=== PATIENT | male | born 1980 | race Caucasian/White ===

== ENCOUNTER 2017-02-23 08:00 | Outpatient (RCR) | payer MEDICAID ==
[2016-04-18 10:18] VITALS: Ht 160 cm; Wt 77.2 kg
[~2017-02-23] VITALS: Ht 160 cm; Wt 77.2 kg
[~2017-02-23 08:00] MED LIST: ACE3 PO; ACE325 PO; ALB18R INH; ALB6.7R NEB; ALBU8.5H12 IH; AMO500 PO; ARI10 PO; ARIP15TA9 PO; ARIP5TAB28 PO; AZIT-1 PO; AZIT600T13 PO; BACDS PO; BIS5 PO; CEP500 PO; CEPH250T5 PO; CHLO25AM IM; CHLO50I IM; CHLO50TA PO; CIP500 PO; CLO5 PO; CLON-303 PO; DIP50I IM; DIPH-1 PO; DIPH-466 PO; DOC100 PO; ESZO2TAB30 PO; ESZO3TAB37 PO; FAMO20TA28 PO; FLUV100T20 PO; FOL1 PO; GAB300 PO; GUA5L PO; HAL5 PO; HYDR-3250 PO; HYDR50CA47 PO; IBU600 PO; IBU800 PO; IPRA3AMP21 IH; KET10 PO; LAMO100T56 PO; LAMO25TA60 PO; LEV500 PO; LIT300 PO; LITC450 PO; LITH300T18 PO; LITH300T5 PO; LITH600C6 PO; LOR1 PO; LOR5/325 PO; LORA-1458 IM; LORA-1458 PO; LORA-633 PO; LORA2ORA8 IM; MIR45PT PO; MIRT-18 PO; MULT-820 PO; MULT1CAP41 PO; MULT1TAB54 PO; MVM PO; MYLL PO; NALT50TA PO; NALT50TA15 PO; NALT50TA29 PO; NEOM3.5O29 *; NIC10R IH; NIC10R INH; NIC10R PO; NICO4LOZ MM; OLAN10TA21 PO; OLAN10TA25 PO; OLAN5TAB25 PO; OMEG-36 PO; PAR20 PO; PER PO; PHENA200 PO; POTA20TA85 PO; PRED20TA6 PO; QUE100 PO; QUET300T17 PO; QUET400T11 PO; QUET50TA21 PO; QUEXR300PT PO; RIS1 PO; SERT-173 PO; TAM4 PO; THERA M PLUS T1 EACH PO; THIA100T3 PO; THIA100T55 PO; TRA50 PO; TRAM100T22 PO; TRAZ300T17 PO; [UNRECOGNIZED DRUG - OTHER]; [UNRECOGNIZED DRUG - OTHER] IM ONLY
[2017-02-23 08:10] VITALS: BP 137/70
--- NOTE | 2017-02-23 17:39 | ONCOLOGY FOLLOW UP NOTE ---
EVENT DATE: February 23, 2017 DIAGNOSES 1. 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 2. Schizophrenia. 3. Chronic diarrhea. CHIEF COMPLAINT The patient is here today for followup of his secondary erythrocytosis. HEMATOLOGY HISTORY The patient is a 35-year-old male with known history of schizophrenia and self- inflicted injuries in the past and chronic diarrhea. The patient has been found to have very high hemoglobin and hematocrit. His CBC on April 07, 2014 showed normal white count at 9.9, normal platelet count at 151,000, but he has hemoglobin of 20.2 and hematocrit 59.9%. MCV was high at 110.6. The patient is a smoker, about 1 pack a day for over 6 years. He also smoked marijuana and he drinks alcohol on a daily basis about 1 to 2 drinks. JAK2 mutation analysis came back negative and erythropoietin level was high at 95, consistent with secondary erythrocytosis most probably due to his smoking. HISTORY OF PRESENT ILLNESS Patient is here today for followup of his secondary erythrocytosis. Patient continues to smoke over a pack a day. He denies any symptoms today and he is feeling better and himself. PAST MEDICAL HISTORY 1. Schizophrenia. 2. Chronic diarrhea. PAST SURGICAL HISTORY 1. Cholecystectomy. 2. Appendectomy. 3. Surgeries for self-inflicted injuries. FAMILY HISTORY Negative for cancer or blood diseases. SOCIAL HISTORY Patient is single. He has a girlfriend, but does not have any children. He smokes about 1 pack a day for 6 years. He has about 1 to 2 drinks daily and he smokes marijuana. CURRENT MEDICATIONS 1. Lomotil tablet p.r.n. for diarrhea. 2. [place] carbonate 600 mg orally daily. 3. Zyprexa 10 mg at bedtime. 4. Lamictal 200 mg at bedtime. ALLERGIES Patient does not know exactly what he is allergic to. REVIEW OF SYSTEMS CONSTITUTIONAL: No appetite or weight change. No fever, chills or sweating. No recent infection. HEENT: Ears: No tinnitus or hearing problem. Nose: No nasal discharge or epistaxis. Throat: No sore throat or mouth ulcers. Eyes: No diplopia or visual changes. RESPIRATORY: No shortness of breath. No cough, expectoration or hemoptysis. CARDIOVASCULAR: No chest pain, orthopnea, or paroxysmal nocturnal dyspnea (PND) . No edema. No palpitations. GASTROINTESTINAL: No nausea or vomiting. No diarrhea or constipation. No change in bowel movements. No heartburn or swallowing difficulties. No abdominal pain. No jaundice. No hematemesis, melena or rectal bleeding. GENITOURINARY: No hematuria or dysuria. MUSCULOSKELETAL: No pain in the muscles, joints or bones. NEUROLOGICAL: No tingling or numbness in the hands or feet. No headaches or convulsions. HEMATOLOGIC/LYMPHATIC: No bleeding or easy bruising. No weakness or fatigue. No enlarged lymph nodes. SKIN: No skin rash or lumps. PSYCHIATRIC: No anxiety or depression. PHYSICAL EXAMINATION GENERAL: Looks stable. Well-developed, well-nourished, and in no acute distress. VITAL SIGNS: Blood pressure 137/70, pulse 93 per minute, respirations 16 per minute, temperature 96.7, pulse ox 91% on room air. HEENT: Head: Atraumatic. No sinus tenderness to palpation. Eyes: No icterus or conjunctivitis. Mouth and throat: No oral thrush or mucositis. NECK: Supple. No cervical or supraclavicular lymphadenopathy. LUNGS: Clear to auscultation and percussion bilaterally. HEART: Regular rate and rhythm. No gallops, murmurs, clicks or rubs. ABDOMEN: Soft and lax. No tenderness. No hepatosplenomegaly. No masses. EXTREMITIES: No cyanosis, clubbing or edema. LYMPHATICS: No peripheral lymphadenopathy. NEUROLOGICAL: Conscious, alert and oriented times three. No focal motor or sensory deficits. PSYCHIATRIC: Mood and affect appear normal. SKIN: No skin rash, bruise or purpuric eruption. DIAGNOSTIC DATA Pending. ASSESSMENT 1. Secondary erythrocytosis most probably due to smoking given that the erythropoietin level was high at 95 and JAK2 mutation analysis was negative. Patient required several phlebotomies in the past. We check his CBC every three months, and will proceed with phlebotomy if his hematocrit is above 55%. I am planning to check his CBC today and if the hematocrit is above 55%, I will proceed with phlebotomy. I will see him again in six months with CBC, and will repeat his CBC every three months. Patient was encouraged to quit smoking. 2. Tobacco abuse. Patient continues to smoke over a pack a day and patient was encouraged to quit smoking. 3. Alcohol abuse. 4. Schizophrenia, on treatment. PLAN 1. Continue followup. 2. Patient to return in six months with CBC. 3. Repeat CBC every three months. 4. Proceed with phlebotomy for 500 mL blood if hematocrit is above 55%. 4. Patient to contact us for any new concerns or complaints. CORDELL
== END 2017-03-10 09:04 | disposition home or self-care (01) ==
LOC: ONC 08:00
PROVIDERS: ATTEND Internal Medicine Hematology
DX: D75.1 Secondary polycythemia (principal); F20.9 Schizophrenia, unspecified; F17.210 Nicotine dependence, cigarettes, uncomplicated; F10.10 Alcohol abuse, uncomplicated; K52.9 Noninfective gastroenteritis and colitis, unspecified; F12.90 Cannabis use, unspecified, uncomplicated; Z79.899 Other long term (current) drug therapy
CPT/HCPCS: 36415; 85027; G0463; 99212

== ENCOUNTER 2017-09-08 13:28 | Outpatient (RCR) | payer MEDICAID ==
[2016-04-18 10:18] VITALS: Wt 90.9 kg
[~2017-09-08 13:28] MED LIST changes: +IPRA3AMP10 IH; -IPRA3AMP21 IH
[2017-09-08 13:48] VITALS: BP 142/78
[2017-09-08 13:50] LABS: PLATELET COUNT, AUTOMATED 129 K/uL (150-450)
--- NOTE | 2017-09-08 17:49 | ONCOLOGY FOLLOW UP NOTE ---
EVENT DATE: September 08, 2017 DIAGNOSES 1. 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 2. Schizophrenia. 3. Chronic diarrhea. CHIEF COMPLAINT The patient is here today for followup of his secondary erythrocytosis. HEMATOLOGY HISTORY The patient is a 37-year-old male with known history of schizophrenia and self- inflicted injuries in the past and chronic diarrhea. The patient has been found to have very high hemoglobin and hematocrit. His CBC on April 07, 2014 showed normal white count at 9.9, normal platelet count at 151,000, but he has hemoglobin of 20.2 and hematocrit 59.9%. MCV was high at 110.6. The patient is a smoker, about 1 pack a day for over 6 years. He also smoked marijuana and he drinks alcohol on a daily basis about 1 to 2 drinks. JAK2 mutation analysis came back negative and erythropoietin level was high at 95, consistent with secondary erythrocytosis most probably due to his smoking. HISTORY OF PRESENT ILLNESS Patient is here today for followup of his secondary erythrocytosis. He is doing fine currently and denies any symptoms this time. He continues to smoke. PAST MEDICAL HISTORY 1. Schizophrenia. 2. Chronic diarrhea. PAST SURGICAL HISTORY 1. Cholecystectomy. 2. Appendectomy. 3. Surgeries for self-inflicted injuries. FAMILY HISTORY Negative for cancer or blood diseases. SOCIAL HISTORY Patient is single. He has a girlfriend, but does not have any children. He smokes about 1 pack a day for 6 years. He has about 1 to 2 drinks daily and he smokes marijuana. CURRENT MEDICATIONS 1. Lomotil tablet p.r.n. for diarrhea. 2. [place] carbonate 600 mg orally daily. 3. Zyprexa 10 mg at bedtime. 4. Lamictal 200 mg at bedtime. ALLERGIES Patient does not know exactly what he is allergic to. REVIEW OF SYSTEMS CONSTITUTIONAL: No appetite or weight change. No fever, chills or sweating. No recent infection. HEENT: Ears: No tinnitus or hearing problem. Nose: No nasal discharge or epistaxis. Throat: No sore throat or mouth ulcers. Eyes: No diplopia or visual changes. RESPIRATORY: No shortness of breath. No cough, expectoration or hemoptysis. CARDIOVASCULAR: No chest pain, orthopnea, or paroxysmal nocturnal dyspnea (PND) . No edema. No palpitations. GASTROINTESTINAL: No nausea or vomiting. No diarrhea or constipation. No change in bowel movements. No heartburn or swallowing difficulties. No abdominal pain. No jaundice. No hematemesis, melena or rectal bleeding. GENITOURINARY: No hematuria or dysuria. MUSCULOSKELETAL: No pain in the muscles, joints or bones. NEUROLOGICAL: No tingling or numbness in the hands or feet. No headaches or convulsions. HEMATOLOGIC/LYMPHATIC: No bleeding or easy bruising. No weakness or fatigue. No enlarged lymph nodes. SKIN: No skin rash or lumps. PSYCHIATRIC: No anxiety or depression. PHYSICAL EXAMINATION GENERAL: Looks stable. Well-developed, well-nourished, and in no acute distress. VITAL SIGNS: Blood pressure 142/78, pulse 112 per minute, respirations 18 per minute, temperature 98.5, pulse ox 90% on room air. HEENT: Head: Atraumatic. No sinus tenderness to palpation. Eyes: No icterus or conjunctivitis. Mouth and throat: No oral thrush or mucositis. NECK: Supple. No cervical or supraclavicular lymphadenopathy. LUNGS: Clear to auscultation and percussion bilaterally. HEART: Regular rate and rhythm. No gallops, murmurs, clicks or rubs. ABDOMEN: Soft and lax. No tenderness. No hepatosplenomegaly. No masses. EXTREMITIES: No cyanosis, clubbing or edema. LYMPHATICS: No peripheral lymphadenopathy. NEUROLOGICAL: Conscious, alert and oriented times three. No focal motor or sensory deficits. PSYCHIATRIC: Mood and affect appear normal. SKIN: No skin rash, bruise or purpuric eruption. DIAGNOSTIC DATA CBC showed white count 7.8, hemoglobin 19.7, hematocrit 58.4, platelets 129, 000. ASSESSMENT 1. Secondary erythrocytosis most probably due to smoking given that his erythropoietin level was high at 95 and JAK2 mutation analysis was negative. Patient required several phlebotomies in the past and he did not have one lately. His current hematocrit is 58.4% and impression and plan to proceed with phlebotomy this time. I will consider phlebotomy whenever his hematocrit is above 55%. I am planning to check his CBC every two months and to proceed with phlebotomy as indicated. I will see him again in six months with CBC. 2. Tobacco abuse. Patient continues to smoke. 3. Alcohol abuse. 4. Schizophrenia, on treatment. PLAN 1. Phlebotomy 500 mL of blood if hematocrit is above 55%. 2. Patient to return in six months with CBC. 3. Check CBC every two months. 4. Patient to contact us for any new concerns or complaints. ALDEND
== END 2017-09-15 09:20 | disposition home or self-care (01) ==
LOC: SPU 13:28
PROVIDERS: ATTEND Internal Medicine Hematology
DX: D75.1 Secondary polycythemia (principal); F20.9 Schizophrenia, unspecified; R19.7 Diarrhea, unspecified; Z72.0 Tobacco use; F10.10 Alcohol abuse, uncomplicated
CPT/HCPCS: 85025; 99195; G0463; 99212

== ENCOUNTER 2018-01-25 14:26 | Outpatient (RCR) | payer MEDICAID ==
[2016-04-18 10:18] VITALS: BMI 33.6
[2018-01-25 14:42] VITALS: BP 139/108
[2018-01-25 14:46] LABS: PLATELET COUNT, AUTOMATED 104 K/uL (150-450)
[2018-01-25] MEDS ORDERED: LIDOCAINE/SOD BICARB 8.4% SYR ID PRN (15:15)
[2018-01-25] MEDS ORDERED: DEXTROSE 5%(*) 100 ML BAG 100 ML IVPB PRN (15:15)
[2018-01-25] MEDS ORDERED: NS(*) 0.9% 100 ML BAG 100 ML IVPB PRN (15:15)
--- NOTE | 2018-01-26 02:32 | [facility] ONCOLOGY NOTE ---
EVENT DATE: January 25, 2018 DIAGNOSES 1. 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 2. Schizophrenia. 3. Chronic diarrhea. CHIEF COMPLAINT The patient is here today for followup of his secondary erythrocytosis. HEMATOLOGY HISTORY The patient is a 37-year-old male with known history of schizophrenia and self- inflicted injuries in the past and chronic diarrhea. The patient has been found to have very high hemoglobin and hematocrit. His CBC on April 07, 2014, showed normal white count at 9.9, normal platelet count at 151,000, but he has hemoglobin of 20.2 and hematocrit 59.9%. MCV was high at 110.6. The patient is a smoker, about one pack a day for over 6 years. He also smoked marijuana and he drinks alcohol on a daily basis about one to two drinks. JAK2 mutation analysis came back negative and erythropoietin level was high at 95, consistent with secondary erythrocytosis most probably due to his smoking. HISTORY OF PRESENT ILLNESS Patient is here today for followup of his secondary erythrocytosis. He is doing fine currently and denies any complaint. PAST MEDICAL HISTORY 1. Schizophrenia. 2. Chronic diarrhea. PAST SURGICAL HISTORY 1. Cholecystectomy. 2. Appendectomy. 3. Surgeries for self-inflicted injuries. FAMILY HISTORY Negative for cancer or blood diseases. SOCIAL HISTORY Patient is single. He has a girlfriend, but does not have any children. He smokes about one pack a day for six years. He has about one to two drinks daily and he smokes marijuana. CURRENT MEDICATIONS 1. Lomotil tablet p.r.n. for diarrhea. 2. [place] carbonate 600 mg orally daily. 3. Zyprexa 10 mg at bedtime. 4. Lamictal 200 mg at bedtime. ALLERGIES Patient does not know exactly what he is allergic to. REVIEW OF SYSTEMS CONSTITUTIONAL: No appetite or weight change. No fever, chills or sweating. No recent infection. HEENT: Ears: No tinnitus or hearing problem. Nose: No nasal discharge or epistaxis. Throat: No sore throat or mouth ulcers. Eyes: No diplopia or visual changes. RESPIRATORY: No shortness of breath. No cough, expectoration or hemoptysis. CARDIOVASCULAR: No chest pain, orthopnea, or paroxysmal nocturnal dyspnea (PND). No edema. No palpitations. GASTROINTESTINAL: No nausea or vomiting. No diarrhea or constipation. No change in bowel movements. No heartburn or swallowing difficulties. No abdominal pain. No jaundice. No hematemesis, melena or rectal bleeding. GENITOURINARY: No hematuria or dysuria. MUSCULOSKELETAL: No pain in the muscles, joints or bones. NEUROLOGICAL: No tingling or numbness in the hands or feet. No headaches or convulsions. HEMATOLOGIC/LYMPHATIC: No bleeding or easy bruising. No weakness or fatigued. No enlarged lymph nodes. SKIN: No skin rash or lumps. PSYCHIATRIC: No anxiety or depression. PHYSICAL EXAMINATION GENERAL: Looks stable. Well-developed, well-nourished, and in no acute distress. VITAL SIGNS: Blood pressure 159/108, pulse 87 per minute, respirations 16 per minute, temperature 99.4, pulse oximetry 88% on room air. HEENT: Head: Atraumatic. No sinus tenderness to palpation. Eyes: No icterus or conjunctivitis. Mouth and throat: No oral thrush or mucositis. NECK: Supple. No cervical or supraclavicular lymphadenopathy. LUNGS: Clear to auscultation and percussion bilaterally. HEART: Regular rate and rhythm. No gallops, murmurs, clicks or rubs. ABDOMEN: Soft and lax. No tenderness. No hepatosplenomegaly. No masses. EXTREMITIES: No cyanosis, clubbing or edema. LYMPHATICS: No peripheral lymphadenopathy. NEUROLOGICAL: Conscious, alert and oriented times three. No focal motor or sensory deficits. PSYCHIATRIC: Mood and affect appear normal. SKIN: No skin rash, bruise or purpuric eruption. DIAGNOSTIC DATA CBC showed white count 6.1, hemoglobin 19.2, hematocrit 57.5, platelet 104,000. ASSESSMENT 1. 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 Patient required several phlebotomies in the past. His current hematocrit is 57.5%, and I am planning to proceed with a phlebotomy whenever his hematocrit is at or above 55%. I am planning to see him in six months with CBC, and I will repeat his CBC in three months. 2. Tobacco abuse. Patient continues to smoke. 3. Alcohol abuse. 4. Schizophrenia, on treatment. PLAN 1. Phlebotomize 500 mL of blood if hematocrit is at or above 55%. 2. Patient to return in six months with CBC. 3. CBC to be checked every three months. 4. Patient to contact us for any new concern or complaint. CORDELL
== END 2018-03-08 ==
LOC: SPU 14:26
PROVIDERS: ATTEND Internal Medicine Hematology
DX: D75.1 Secondary polycythemia (principal); F20.9 Schizophrenia, unspecified; R19.7 Diarrhea, unspecified; Z72.0 Tobacco use; F10.10 Alcohol abuse, uncomplicated
CPT/HCPCS: 85025; 99195; G0463; 99212

== ENCOUNTER 2018-04-25 16:54 | Outpatient (RCR) | payer MEDICAID ==
[2016-04-18 10:18] VITALS: BMI 33.6
[~2018-04-25 16:54] MED LIST changes: -LAMO25TA60 PO; +LAMO25TA68 PO
== END 2018-04-26 16:47 | disposition home or self-care (01) ==
LOC: SPU 16:54
PROVIDERS: ATTEND Internal Medicine Hematology
DX: D75.1 Secondary polycythemia (principal); R79.89 Other specified abnormal findings of blood chemistry

== ENCOUNTER 2018-04-30 12:08 | Outpatient (RCR) | payer MEDICAID ==
[2016-04-18 10:18] VITALS: BMI 33.6
[2018-04-30 12:14] VITALS: BP 152/92
[2018-04-30 12:19] LABS: PLATELET COUNT, AUTOMATED 157 K/uL (150-450)
[2018-04-30 13:08] VITALS: BP 125/78
[2018-04-30] MEDS ORDERED: LIDOCAINE/SOD BICARB 8.4% SYR ID PRN (13:25)
[2018-04-30] MEDS ORDERED: DEXTROSE 5%(*) 100 ML BAG 100 ML IVPB PRN (13:25)
[2018-04-30] MEDS ORDERED: NS(*) 0.9% 100 ML BAG 100 ML IVPB PRN (13:25)
== END 2018-07-26 ==
LOC: SPU 12:08
PROVIDERS: ATTEND Internal Medicine Hematology
DX: D75.1 Secondary polycythemia (principal); R79.89 Other specified abnormal findings of blood chemistry
CPT/HCPCS: 85025; 99195

== ENCOUNTER 2018-09-30 08:55 | Inpatient (IN) | payer MEDICAID ==
[~2018-09-30] VITALS: Ht 160 cm; Wt 84.9 kg
--- NOTE | 2018-09-30 09:02 | ER Report ---
History and Physical Time Seen By MD: 08:58 HPI/ROS 38-year-old male with history of alcohol abuse who presents with generalized feeling unwell is concerned that he is having some type of cardiac problem. Patient states that he drinks half a pint to a pint per day. Denies any fevers, chills, chest pain. He does endorse palpitations. His last drink was last night and he denies any history of alcohol withdrawal seizures. Patient states that he is interested in inpatient detox. He also endorses occasional marijuana use. He also states that he has some intermittent left hand numbness that has been present for the last 2 weeks. Full review of systems was conducted and is otherwise negative except as noted in history of present illness Remainder of the 14 system rev: Yes Allergies: Coded Allergies: levofloxacin (Verified Allergy, Intermediate, RASH, 01/10/17) sulfamethoxazole (Verified Allergy, Intermediate, HIVES, 01/10/17) trimethoprim (Verified Allergy, Intermediate, HIVES, 01/10/17) latex (Verified Allergy, Mild, 01/10/17) Home Meds Reported Medications Lamotrigine (LAMICTAL) 100 Mg Tablet, 100 MG PO 01/10/17 Olanzapine (ZYPREXA) 10 Mg Tablet, 10 MG PO QHS 06/09/16 Discontinued Reported Medications Naltrexone Hcl (NALTREXONE HCL) 50 Mg Tablet, 50 MG PO DAILY 08/25/16 Discontinued Scripts Ipratropium/Albuterol Sulfate (IPRAT-ALBUT 0.5-3(2.5) MG/3 ML) 3 Ml Ampul.neb, 3 ML IH QID PRN for prn, #1 BOX Prov:MINI LIN PA-C 01/10/17 Albuterol Sulfate (VENTOLIN HFA) 18 Gm Inh, 2 PUFF INH Q4-6H, #1 INH Prov:MINI LIN PA-C 01/10/17 Azithromycin (ZITHROMAX) 250 Mg Tablet, 0 PO QDAY, #6 TAB Prov:MINI LIN PA-C 01/10/17 Reviewed Nurses Notes: Yes Old Medical Records Reviewed: Yes Hx Smoking: Yes Smoking Status: Heavy Tobacco Smoker Exposure to Second Hand Smoke?: Yes Hx Substance Use Disorder: Yes (MARIJUANA, A LITTLE) Hx Alcohol Use: Yes Constitutional Vital Sign - Last 24 Hours 09/30/18 09/30/18 09/30/18 09/30/18 08:55 08:59 09:03 09:10 Pulse 135 133 128 Resp 16 B/P (MAP) 141/88 (105) 141/88 136/88 (104) Pulse Ox 87 88 O2 Delivery Room Air 09/30/18 09/30/18 09/30/18 09/30/18 09:25 09:40 09:55 10:00 Pulse 123 111 110 Resp 16 12 12 B/P (MAP) 125/83 (97) Pulse Ox 92 90 96 09/30/18 09/30/18 09/30/18 09/30/18 10:10 10:25 10:30 10:40 Pulse 115 118 117 Resp 24 23 21 B/P (MAP) 130/83 (99) Pulse Ox 94 93 94 Physical Exam General Appearance: Alert, no acute distress [Eyes:] [Pupils equal and round [ENT, Mouth:] [Mucous membranes are moist.] Respiratory: [There are no retractions, lungs are clear to auscultation.] Cardiovascular: Tachycardic; regular rhythm Gastrointestinal: [Abdomen is soft and non tender, no masses, bowel sounds normal.] [Neurological:] No focal deficits [Skin:] [Warm and dry, no rashes.] [Musculoskeletal:] Mildly tremulous Medical Decision Making Data Points Result Diagram: 09/30/18 0900 09/30/18 0900 Laboratory Hematology Test 09/30/18 09:00 White Blood Count 14.8 k/uL (4.5-11.0) H Red Blood Count 5.06 M/uL (4.00-5.60) Hemoglobin 18.1 g/dL (14.0-18.0) H Hematocrit 53.0 % (42.0-52.0) H Mean Corpuscular Volume 104.7 fL (80.0-96.0) H Mean Corpuscular Hemoglobin 35.8 pg (26.0-33.0) H Mean Corpuscular Hemoglobin Concent 34.2 g/dL (32.0-36.0) Red Cell Distribution Width 22.5 % (11.5-14.5) H Platelet Count 130 K/uL (150-450) L Mean Platelet Volume 10.1 fL (7.2-11.1) Neutrophils (%) (Auto) 81.6 % (39.4-72.5) H Lymphocytes (%) (Auto) 10.7 % (17.6-49.6) L Monocytes (%) (Auto) 7.1 % (4.1-12.4) Eosinophils (%) (Auto) 0.2 % (0.4-6.7) L Basophils (%) (Auto) 0.4 % (0.3-1.4) Nucleated RBC Relative Count (auto) 0.0 /100WBC Neutrophils # (Auto) 12.1 K/uL (2.0-7.4) H Lymphocytes # (Auto) 1.6 K/uL (1.3-3.6) Monocytes # (Auto) 1.1 K/uL (0.3-1.0) H Eosinophils # (Auto) 0.0 K/uL (0.0-0.5) Basophils # (Auto) 0.1 K/uL (0.0-0.1) Nucleated RBC Absolute Count (auto) 0.00 K/uL Peripheral Blood Smear Yes Y/N Chemistry Test 09/30/18 09:00 Sodium Level 133 mmol/L (137-145) Potassium Level 2.5 mmol/L (3.5-5.0) Chloride Level 95 mmol/L (98-107) Carbon Dioxide Level 28 mmol/L (22-30) Blood Urea Nitrogen 4 mg/dl (9-21) Creatinine 0.60 mg/dl (0.66-1.25) Glomerular Filtration Rate Calc > 60.0 Random Glucose 128 mg/dl (75-110) Calcium Level 7.6 mg/dl (8.4-10.2) Total Bilirubin 5.0 mg/dl (0.2-1.3) Aspartate Amino Transf (AST/SGOT) 170 U/L (0-35) Alanine Aminotransferase (ALT/SGPT) 75 U/L (0-56) Alkaline Phosphatase 274 U/L (0-126) Troponin I < 0.012 ng/ml Total Protein 7.0 g/dl (6.3-8.2) Albumin 3.2 g/dl (3.5-5.0) Toxicology Test 09/30/18 09:00 Serum Alcohol < 10 mg/dl EKG/Imaging EKG Interpretation Sinus tachycardia with a ventricular rate of 1:30. Intervals within normal limits. No significant ST or T-wave abnormalities. Evidence of right atrial enlargement. Monitor Interpretation: Sinus Tachycardia ED Course/Re-evaluation Clinical Indication for ER IV: Hydration, IV Access ED Course 38-year-old male with history of alcohol abuse who presents for generalized feeling of unwell. On arrival, patient is tachycardic to the 130s but otherwise mechanically stable. He is afebrile. Physical exam is notable for some mild scleral icterus and upper extremity tremors. Differential includes but is not limited to alcohol withdrawal, electrolyte abnormality, cardiac arrhythmia, cardiac ischemia. Labs are notable for a potassium of 2.5; he was given 40 mEq of oral potassium as well as 20 mEq of IV potassium with 2 g of magnesium. He is given a total of 1.5 L of crystalloid with improvement in his heart rate to the one teens. He was given an initial 1 mg of IV lorazepam for alcohol withdrawal symptoms with improvement in his subjective symptoms. Labs otherwise notable for elevated bilirubin compared to prior values: LFTs around baseline. Patient does state that he is interested in inpatient detox at this time given he is unable to be medically cleared with a critical potassium, discussed with the admitting hospitalist Dr. Rahman who is in agreement with admission for further management of his alcohol withdrawal, hypokalemia. Decision to Disposition Date: Sep 30, 2018 Decision to Disposition Time: 10:44 Depart Departure Latest Vital Signs Vital Signs Date Time Temp Pulse Resp B/P (MAP) Pulse Ox O2 Delivery O2 Flow Rate FiO2 09/30/18 10:40 117 21 94 09/30/18 10:30 130/83 (99) 09/30/18 08:59 Room Air Impression: Primary Impression: Alcohol withdrawal Additional Impressions: Hypokalemia Hyperbilirubinemia Condition: Improved Disposition: Admitted from ER Referrals: BEATRIZ PIMENTEL (PCP) Problem Qualifiers JERAD BACON MD Sep 30, 2018 09:02
[2018-09-30] MEDS ORDERED: NS(*) 0.9% 500 ML BAG 500 ML IV ONE (09:12)
[2018-09-30] MEDS ORDERED: FOLIC ACID 1 MG TAB PO ONE (09:20)
[2018-09-30] MEDS ORDERED: THIAMINE HCL 100 MG TAB PO ONE (09:20)
[2018-09-30 09:32] LABS: PLATELET COUNT, AUTOMATED 130 K/uL (150-450)
--- NOTE | 2018-09-30 09:34 | EKG ---
FACILITY: [facility] PATIENT NAME: MARY RIVERA : [id number] MR: [id number] V: [id number] EXAM DATE: ORDERING PHYSICIAN: JERAD BACON TECHNOLOGIST: CARLOS Test Reason : TACHYCARDIA Blood Pressure : / mmHG Vent. Rate : 130 BPM Atrial Rate : 130 BPM P-R Int : 150 ms QRS Dur : 066 ms QT Int : 392 ms P-R-T Axes : 055 028 053 degrees QTc Int : 576 ms Sinus tachycardia Right atrial enlargement Septal infarct , age undetermined Abnormal ECG Confirmed by GATITO CANO ([id number]) on 09/30/2018 6:15:12 PM Referred By: ARLEEN Confirmed By:GATITO CANO
[2018-09-30] MEDS ORDERED: LORazepam 2 MG/ML VIAL IVP ONE (10:20)
[2018-09-30] MEDS ORDERED: MAGNESIUM SUL* 2 GM/50 ML IVPB 50 ML IVPB ONE (10:25)
[2018-09-30] MEDS ORDERED: KCL (*) 20 MEQ/100 ML PREMIX 100 ML IV ONE (10:25)
[2018-09-30] MEDS ORDERED: POTASSIUM CHL 20 MEQ TABCR PO ONE ×2 (10:25→16:45)
[2018-09-30] MEDS ORDERED: LR(*) 1000 ML BAG 1,000 ML IV PRN (10:30)
[2018-09-30] MEDS ORDERED: NS(*) 0.9% 1000 ML BAG 1,000 ML IV PRN (11:26)
[2018-09-30] MEDS ORDERED: LORazepam 2 MG/ML VIAL IVP PRN (11:30)
[2018-09-30 11:35] VITALS: BP 127/78
[2018-09-30] MEDS ORDERED: NICOTINE INH SYSTEM 10 MG/INH INH PRN (11:35)
[2018-09-30] MEDS: LORazepam 1 MG TAB PO PRN ×3 (11:54→22:28)
[2018-09-30] MEDS ORDERED: OLAN20TA6 PO (12:00)
[2018-09-30] MEDS ORDERED: LAMO200T45 PO (12:01)
--- NOTE | 2018-09-30 12:49 | RADIOLOGY IMAGING REPORT ---
FACILITY: [facility] PATIENT NAME: Fadi Young : 1980 MR: [id number] V: [id number] EXAM DATE: ORDERING PHYSICIAN: GATITO TORRES TECHNOLOGIST: Location: [facility] Patient: Fadi Young : 1980 Visit/Account:[id number] Date of Sevice: 09/30/2018 CHEST SINGLE AP HISTORY: Wheezing. COMPARISON: 01/10/2017. FINDINGS: Lines/tubes: None. Lungs/pleura: Stable mildly prominent interstitial markings. No focal consolidation, pleural effusio n, or pneumothorax. Heart: Negative. Mediastinum: Negative. Bony structures/body wall: Negative. IMPRESSION: Stable mildly prominent interstitial markings compared with the prior chest x-ray from . Otherwise no acute cardiopulmonary process. Report Dictated By: Darryl Singer MD at 09/30/2018 12:39 PM Report E-Signed By: Darryl Singer MD at 09/30/2018 12:42 PM WSN:[id number]
[2018-09-30] MEDS: ALBUTEROL/IPRATROPIUM 3 ML NEB NEB SCH ×2 (13:15→18:04)
--- NOTE | 2018-09-30 13:19 | History & Physical ---
History of Present Illness Chief Complaint Weakness, just don't feel good. History of Present Illness The patient is a 38 year old with PMH significant for alcohol dependence syndrome who presents with several days of feeling poorly. He notes that yesterday he had an episode of L arm, neck and face numbness which lasted for about a minute. He did not seek medical attention because his symptoms quickly resolved. He does admit that he hasn't felt well overall. He has had generalized weakness and has also had some nausea and vomiting. He has a history of diarrhea but states this has improved. The patient has a long history of alcohol depende nce and has had many ER visits and hospital stays for treatment and detox. He was last admitted to the hospitalist service in May of 2016. He states he drinks a fifth of vodka daily. He also smokes a pack of cigarettes daily and smokes marijuana. In the past he has had significant electrolyte abnormalities related to his alcohol use and has been admitted with low potassium and magnesium in the past. He has a history of bipolar disorder and takes olanzapine 20mg at HS and lamotrigine 200mg in the am. He admits that he has not been compliant with his lamotrigine and needs to get back on it. He states he has been wheezing at home. He uses an albuterol MDI prn. He has not had shortness of breath, fever or chills. In the ER, the patient expressed an interest in detoxifying from alcohol. He was noted to have hypokalemia and hypomagnesemia. He was recommended for admission. History Problems: (1) Deafness in left ear Status: Chronic (2) Alcohol use disorder, severe, dependence Status: Chronic (3) Secondary erythrocytosis Status: Chronic (4) History of appendectomy Status: Resolved (5) Hx of cholecystectomy Status: Resolved (6) Bipolar disorder Status: Chronic Home Meds Reported Medications Lamotrigine (LAMOTRIGINE) 200 Mg Tablet, 200 MG PO DAILY 09/30/18 Olanzapine (OLANZAPINE) 20 Mg Tablet, 20 MG PO HS 09/30/18 Discontinued Reported Medications Lamotrigine (LAMICTAL) 100 Mg Tablet, 100 MG PO DAILY 01/10/17 Naltrexone Hcl (NALTREXONE HCL) 50 Mg Tablet, 50 MG PO DAILY 08/25/16 Olanzapine (ZYPREXA) 10 Mg Tablet, 10 MG PO QHS 06/09/16 Discontinued Scripts Ipratropium/Albuterol Sulfate (IPRAT-ALBUT 0.5-3(2.5) MG/3 ML) 3 Ml Ampul.neb, 3 ML IH QID PRN for prn, #1 BOX Prov:BUFFY LINJEAN Sandoval PA-C 01/10/17 Albuterol Sulfate (VENTOLIN HFA) 18 Gm Inh, 2 PUFF INH Q4-6H, #1 INH Prov:BUFFY LINJEAN Sandoval PA-C 01/10/17 Azithromycin (ZITHROMAX) 250 Mg Tablet, 0 PO QDAY, #6 TAB Prov:BUFFY LINJEAN Sandoval PA-C 01/10/17 Allergies: Coded Allergies: levofloxacin (Verified Allergy, Intermediate, RASH, 01/10/17) sulfamethoxazole (Verified Allergy, Intermediate, HIVES, 01/10/17) trimethoprim (Verified Allergy, Intermediate, HIVES, 01/10/17) latex (Verified Allergy, Mild, 01/10/17) Patient History: FH: alcohol abuse FATHER MOTHER FH: heart attack FATHER Other Social/Family Hx The patient is disabled. He lives in [place]. Hx Smoking: Yes Smoking Status: Heavy Tobacco Smoker Exposure to Second Hand Smoke?: Yes Caffeine Intake: Soda Caffeine/Cups Per Day: 8 Hx Alcohol Use: Yes Hx Substance Use Disorder: Yes (MARIJUANA, A LITTLE) Social Drug Use: Former Social Drugs: Marijuana Amount Of Social Drug/s Used: Varied Review of Systems All Systems Reviewed/Normal: Yes, Except as Noted Neurological: Weakness ENT: Hearing Loss (L ear.) Cardiovascular: No Chest Pain Respiratory: Wheezing; No Shortness of Breath Gastrointestinal: Nausea, Vomiting Musculoskeletal: No Pain Psychiatric: Other (Bipolar disorder.) Exam Vital Signs Vital Signs Date Time Temp Pulse Resp B/P (MAP) Pulse Ox O2 Delivery O2 Flow Rate FiO2 09/30/18 11:58 90 Nasal Cannula 1.0 09/30/18 11:35 98.5 110 18 127/78 (94) General Appearance: Alert, Awake, No Acute Distress Neuro: No Gross deficits Cardiovascular: Other (Tachy, regular. ) Respiratory: Other (Decreased BS throughout with scattered wheezes.) GI: Abd Soft and Non-Tender Extremities: Warm, Perfused Integumentary: Skin Intact without Lesion / Mass Psych: Appropriate Mood & Affect Medical Decision Making Data Points Result Diagram: 09/30/1889909/30/18899 Item Value Date Time Calcium Level 7.6 mg/dl L 09/30/18899 Total Bilirubin 5.0 mg/dl H 09/30/18899 Aspartate Amino Transf (AST/SGOT) 170 U/L H 09/30/18899 Alanine Aminotransferase (ALT/SGPT) 75 U/L H 09/30/18899 Alkaline Phosphatase 274 U/L H 09/30/18899 Troponin I < 0.012 ng/ml 09/30/18899 Total Protein 7.0 g/dl 09/30/18899 Albumin 3.2 g/dl L 09/30/18899 Serum Alcohol < 10 mg/dl 09/30/18899 EKG / Imaging EKG Interpretation FACILITY: [facility] PATIENT NAME: FADI YOUNG : [id number] MR: [id number] V: [id number] EXAM DATE: ORDERING PHYSICIAN: JERAD BACON TECHNOLOGIST: Test Reason : TACHYCARDIA Blood Pressure : / mmHG Vent. Rate : 130 BPM Atrial Rate : 130 BPM P-R Int : 150 ms QRS Dur : 066 ms QT Int : 392 ms P-R-T Axes : 055 028 053 degrees QTc Int : 576 ms Sinus tachycardia Right atrial enlargement Septal infarct , age undetermined Abnormal ECG When compared with ECG of 03-JUL-2016 05:07, Previous ECG has undetermined rhythm, needs review Septal infarct is now present Referred By: ARLEEN Confirmed By: [id number] T: Imaging FACILITY: [facility] PATIENT NAME: Fadi Young : 1980 MR: [id number] V: [id number] EXAM DATE: ORDERING PHYSICIAN: GATITO TORRES TECHNOLOGIST: [facility] Patient: Fadi Young : 1980 Visit/Account:[id number] Date of Sevice: 09/30/2018 CHEST SINGLE AP HISTORY: Wheezing. COMPARISON: 01/10/2017. FINDINGS: Lines/tubes: None. Lungs/pleura: Stable mildly prominent interstitial markings. No focal consolidation, pleural effusion, or pneumothorax. Heart: Negative. Mediastinum: Negative. Bony structures/body wall: Negative. IMPRESSION: Stable mildly prominent interstitial markings compared with the prior chest x-ray from 01/10/2017. Otherwise no acute cardiopulmonary process. Report Dictated By: Darryl Singer MD at 09/30/2018 12:39 PM Report E-Signed By: Darryl Singer MD at 09/30/2018 12:42 PM [id number] Pre-Admit Course Medical Record Review: Yes Assessment and Plan Problems: (1) Alcohol withdrawal Status: Resolved Assessment & Plan: Will admit and place on CIFL with telemetry and seizure precautions. No previous hx of alcohol related seizures. Will continue thiamine 100mg daily and folate 1mg daily. Will gently hydrate. [facility] to evaluate when the patient is medically stable. The patient has had severe withdrawal in the past requiring intubation and sedation to protect his airway. Will monitor closely. (2) Alcoholic hepatitis Status: Acute Assessment & Plan: Will monitor LFTs. These will likely improve with abstinence from alcohol. (3) Hypomagnesemia Status: Acute Assessment & Plan: He received 2g of magnesium IV in ER. Will repeat a magnesium level in the am. (4) Hypokalemia Status: Acute Assessment & Plan: He received oral potassium 40 meq as well as a 20meq K-rider in the ER. Will repeat a BMP this afternoon. Continue to supplement as needed. Monitor labs. (5) Alcohol use disorder, severe, dependence Status: Chronic Assessment & Plan: The patient has had multiple admissions to [facility] for his alcohol dependence syndrome. Will consult [facility] when he is medically stable. (6) Bipolar disorder Status: Chronic Assessment & Plan: Will continue olanzapine 20mg at HS and lamotrigine 200mg q am. (7) Secondary erythrocytosis Status: Chronic Assessment & Plan: Review of Dr. Reji Thibodeaux's notes shows that the patient is to undergo phlebotomy when his Hct is 55 or greater. He is currently below this level. Time Spent on Plan of Care: < 30 min Venous Thromboembolism Antithrombotics Is Pt On Any Antithrombotics?: No Prophylaxis Tx Contraindicated Pharmacological Contraindicati: Liver Disease Exam Sepsis Risk: Severe Sepsis Risk GATITO TORRES MD Sep 30, 2018 13:19
[2018-09-30 13:25] VITALS: BP 120/74
[2018-09-30 14:18] VITALS: BP 121/71
[2018-09-30 19:07] VITALS: BP 120/82
[2018-09-30] MEDS ORDERED: OLANZapine 5 MG TAB PO SCH (21:00)
[2018-10-01 00:12] VITALS: BP 133/78
[2018-10-01 03:19] VITALS: BP 106/59
--- NOTE | 2018-10-01 03:55 | NUR ---
The patient has refused to wear O2 most of the night, and removes his pulse ox. He also refuses IV fluids, and has repeatedly turned off the IV pump, even though I locked the keypad, and he also broke the tubing to disconnect himself. I have left him disconnected from IV fluids, and reconnect his pulse ox to spot check him, and he is usually 80-85% on room air. I will urge him to wear the O2 and pulse ox, which he will put on, but within the next 10 min, he will remove them.
[2018-10-01] MEDS: ALBUTEROL/IPRATROPIUM 3 ML NEB NEB SCH ×2 (05:35→11:21)
[2018-10-01 07:10] VITALS: BP 117/73
[2018-10-01] MEDS ORDERED: FOLIC ACID 1 MG TAB PO SCH (09:00)
[2018-10-01] MEDS ORDERED: lamoTRIgine 100 MG TAB PO SCH (09:00)
[2018-10-01] MEDS ORDERED: THIAMINE HCL 100 MG TAB PO SCH (09:00)
[2018-10-01] MEDS ORDERED: MAGNESIUM SUL* 2 GM/50 ML IVPB 50 ML IVPB ONE (09:05)
[2018-10-01] MEDS ORDERED: POTASSIUM CHL 20 MEQ TABCR PO SCH (09:30)
[2018-10-01 09:32] VITALS: Ht 160 cm; Wt 84.9 kg
[2018-10-01 09:40] LABS: PLATELET COUNT, AUTOMATED 101 K/uL (150-450)
[2018-10-01 09:52] LABS: INR 1.15
--- NOTE | 2018-10-01 11:07 | RADIOLOGY IMAGING REPORT ---
FACILITY: [facility] [place] PATIENT NAME: Fadi Young : 1980 MR: [id number] V: [id number] EXAM DATE: ORDERING PHYSICIAN: JOAQUIM BANKS TECHNOLOGIST: Location: [facility] [place] Patient: Fadi Young : 1980 Visit/Account:[id number] Date of Sevice: 10/01/2018 LIVER HISTORY: ELEVATED LFTS; ELEVATED BILIRUBIN; HX ETOH COMPARISON: April 17, 2016 FINDINGS: Gallbladder: Surgically absent Liver: Liver is enlarged measuring 25.3 cm in length and is increased from 18.7 cm previously. There is diffuse increased echogenicity throughout the liver which can be seen with fatty infiltration or other infiltrative process. Common duct: Normal, five mm diameter. Pancreas: Partially obscured by bowel, visualized aspects unremarkable. Right kidney: Right kidney appears unremarkable measuring 12 cm in length Upper abdominal aorta and IVC: Patent. Ascites: None visualized. IMPRESSION: Hepatomegaly which is increase in size when compared to the prior study. Increased echogenicity throughout liver which can be seen with fatty infiltration or other infiltrati ve process Report Dictated By: Dolores Ulloa MD at 10/01/2018 10:54 AM Report E-Signed By: Dolores Ulloa MD at 10/01/2018 10:58 AM [id number]
[2018-10-01 11:19] VITALS: BP 119/69
--- NOTE | 2018-10-01 14:03 | Hospitalist Depart ---
Discharge Summary Reason for Hosp/Final Diag: (1) Alcohol withdrawal Status: Resolved Hospital Course & Plan: No previous Hx of alcohol related seizures. Patient requiring minimal intervention for withdrawal and has needed no medications for over 12 hours. He refuses any further treatment for alcohol abuse as inpatient. [facility] consulted to provide resources available in community. (2) Alcoholic hepatitis Status: Acute Hospital Course & Plan: Will monitor LFTs. These will likely improve with abstinence from alcohol. (3) Hypomagnesemia Status: Acute Hospital Course & Plan: He received 2g of magnesium IV in ER. Repeat was WNL. (4) Hypokalemia Status: Acute Hospital Course & Plan: He received oral potassium 40 meq as well as a 20meq K- rider in the ER. Improved (5) Alcohol use disorder, severe, dependence Status: Chronic Hospital Course & Plan: The patient has had multiple admissions to [facility] for his alcohol dependence syndrome. Declines admission on this visit. Discussed the need to stop drinking completely and immediately given the declining liver function. (6) Bipolar disorder Status: Chronic Hospital Course & Plan: Will continue olanzapine 20mg at HS and lamotrigine 200mg q am. (7) Secondary erythrocytosis Status: Chronic Hospital Course & Plan: Review of Dr. Reji Thibodeaux's notes shows that the patient is to undergo phlebotomy when his Hct is 55 or greater. He is currently below this level. Departure Weight (Pounds): 187 Weight (Ounces): 3.0 Result Diagram: 10/01/18 0928 10/01/18 0531 Condition: Improved Discharge: Home Discharge Instructions Home Meds Reported Medications Lamotrigine (LAMOTRIGINE) 200 Mg Tablet, 200 MG PO DAILY 09/30/18 Olanzapine (OLANZAPINE) 20 Mg Tablet, 20 MG PO HS 09/30/18 Discontinued Reported Medications Lamotrigine (LAMICTAL) 100 Mg Tablet, 100 MG PO DAILY 01/10/17 Naltrexone Hcl (NALTREXONE HCL) 50 Mg Tablet, 50 MG PO DAILY 08/25/16 Olanzapine (ZYPREXA) 10 Mg Tablet, 10 MG PO QHS 06/09/16 Discontinued Scripts Ipratropium/Albuterol Sulfate (IPRAT-ALBUT 0.5-3(2.5) MG/3 ML) 3 Ml Ampul.neb, 3 ML IH QID PRN for prn, #1 BOX Prov:MINI LIN PA-C 01/10/17 Albuterol Sulfate (VENTOLIN HFA) 18 Gm Inh, 2 PUFF INH Q4-6H, #1 INH Prov:MINI LIN PA-C 01/10/17 Azithromycin (ZITHROMAX) 250 Mg Tablet, 0 PO QDAY, #6 TAB Prov:MINI LIN PA-C 01/10/17 Diet: Regular Activity: As Tolerated Special Instructions: Please seek counseling for alcohol abuse after discharge. Recommend you stop consuming alcohol completely. Venous Thromboembolism Antithrombotics Is Pt On Any Antithrombotics?: No JOAQUIM HALE DO Oct 01, 2018 14:03
== END 2018-10-01 14:11 | disposition home or self-care (01) | DRG 897 ==
LOC: ER 09:17 → MED 11:07
PROVIDERS: ADMIT Internal Medicine; ATTEND Internal Medicine
DX: F10.230 Alcohol dependence with withdrawal, uncomplicated (principal); K70.10 Alcoholic hepatitis without ascites; E83.42 Hypomagnesemia; E87.6 Hypokalemia; F31.9 Bipolar disorder, unspecified; D75.1 Secondary polycythemia; F17.210 Nicotine dependence, cigarettes, uncomplicated; H91.92 Unspecified hearing loss, left ear; Z88.2 Allergy status to sulfonamides; Z88.8 Allergy status to other drugs, medicaments and biological substances; Z91.040 Latex allergy status; Z90.49 Acquired absence of other specified parts of digestive tract
CPT/HCPCS: 36415; 71045; 76705; 80320; 82040; 82247; 82248; 82310; 82374; 82435; 82565; 82947; 83735; 84075; 84132; 84155; 84295; 84450; 84460; 84484; 84520; 85025; 85610; 93005; 94640; 96361; 96365; 96368; 96375; 99285; J2060; J3475; J3480; J7030; J7040; J7120